=== PATIENT | female | born 1995 | race Caucasian/White ===

== ENCOUNTER 2020-06-02 08:13 | Emergency (ER) | payer OTHER ==
[~2020-06-02] VITALS: Ht 165.1 cm; Wt 62.1 kg
[2020-06-02] MEDS ORDERED: NITR100CA PO (08:42)
[2020-06-02] MEDS ORDERED: Flagyl500 MG PO (08:54)
[2020-06-02] MEDS ORDERED: Monodox100 MG PO (08:54)
[2020-06-02 08:57] LABS: Source, Urine Clean Catch
[2020-06-02 09:09] LABS: Bilirubin, Urine Neg (Neg); Blood, Urine 4+ (Neg); Glucose Qualitative, Urine Neg (Neg); Ketones, Urine 3+ (Neg); Leukocyte Esterase, Urine 1+ (Neg); Nitrite, Urine Neg (Neg); Protein, Urine 2+ (Neg); Urobilinogen, Urine NORM (Normal)
[2020-06-02 09:16] LABS: Appearance, Urine Hazy (Clear); Color, Urine Yellow (P-Yellow)
[2020-06-02 09:18] LABS: Squamous Epithelial Cells Mod /hpf (Few)
[2020-06-02 09:19] LABS: Bacteria Mod /hpf; Mucus Light (0-Heavy)
[2020-06-02 11:22] LABS: Candida species (DNA Probe) Negative (NEGATIVE); G. vaginalis (DNA Probe) Positive (NEGATIVE); T. vaginalis (DNA Probe) Negative (NEGATIVE)
[2020-06-05 12:08] LABS: CHLAMYDIA BY NAA Negative (Negative); GONOCOCCUS BY NAA Negative (Negative); TRICH VAG BY NAA Negative (Negative)
== END 2020-06-02 09:57 | disposition home or self-care (01) ==
LOC: ER 08:13
PROVIDERS: Physician Assistant
DX: N39.0 Urinary tract infection, site not specified (principal); F17.210 Nicotine dependence, cigarettes, uncomplicated
CPT/HCPCS: 81001; 81025; 87070; 87086; 87147; 87205; 87480; 87491; 87510; 87591; 87660; 87661; 96372; 99284-25; A9270-GY; J0696